=== PATIENT | male | born 1950 | race Two or more races ===

== ENCOUNTER 2020-11-27 10:03 | Day surgery (SDC) | payer OTHER | END 2020-11-27 17:00 | disposition home or self-care (01) | LOC: AMB-ENDOS 10:03 | PROVIDERS: ATTEND Colon & Rectal Surgery | DX: D12.2 Benign neoplasm of ascending colon (principal); D12.3 Benign neoplasm of transverse colon; K64.8 Other hemorrhoids; Z20.822 Contact with and (suspected) exposure to COVID-19; Z12.11 Encounter for screening for malignant neoplasm of colon ==